=== PATIENT | female | born 2000 | race Caucasian/White ===

== ENCOUNTER 2021-06-03 18:20 | Inpatient (IN) | payer MEDICAID, OTHER ==
[2021-06-03 22:47] LABS: #Eosinphils 0.1 thou/uL (0.0-0.7); #Lymphocytes 2.6 thou/uL (1.20-3.40); #Monocytes 0.5 thou/uL (0.11-0.59); #Neutrophils 3.3 thou/uL (1.40-6.50); %Basophils 0.4 % (0.0-1.0); %Eosinophils 1.3 % (0.0-10.0); %Lymphocytes 40.2 % (21.0-51.0); %Monocytes 7.8 % (0.0-10.0); %Neutrophils 50.4 % (42.0-75.0); Hemoglobin 13.3 g/dL (12.0-16.0); Mean Corpuscular HGB CONC 32.9 g/dL (32.0-36.0); Mean Corpuscular Hemoglobin 28.3 pg (27.0-31.0); Mean Corpuscular Volume 85.8 fL (78.0-98.0); Mean Platelet Volume 6.3 fL (7.4-10.4); Platelet Count 228 thou/uL (130-400); RBC Distribution Width 11.2 % (11.5-14.5); Red Blood Cell (RBC) Count 4.72 mill/uL (4.20-5.40); White Blood Cell (WBC) Count 6.5 thou/uL (4.8-10.8)
[2021-06-03 23:03] LABS: ALT (SGPT) 9 U/L (8-55); AST (SGOT) 12 U/L (5-34); Albumin 3.6 g/dL (3.5-5.0); Alkaline Phosphatase 52 U/L (40-110); Anion Gap 13 mmol/L (10-20); BUN (Urea Nitrogen) 10 mg/dL (7.0-18.7); Bilirubin, Total 0.2 mg/dL (0.2-1.2); Calc. Creatinine Clearance 0 mL/min (70-130); Calcium 8.6 mg/dL (7.8-10.44); Carbon Dioxide 21 mmol/L (22-29); Chloride 106 mmol/L (98-107); Globulin 3.1 g/dL (2.4-3.5); Glucose 88 mg/dL (70-105); Protein, Total 6.7 g/dL (6.0-8.3); Sodium 136 mmol/L (136-145)
[2021-06-04] MEDS ORDERED: diphenhydrAMINE 50 MG/ML VIAL ONE (01:06)
[2021-06-04] MEDS ORDERED: Metoclopramide HCl 10 MG/2 ML VIAL ONE (01:06)
[2021-06-04 01:07] LABS: Color Of CSF Supernatant COLORLESS (Colorless); Unspun CSF Color COLORLESS (Colorless)
[2021-06-04 01:08] LABS: Tube # 3
[2021-06-04 01:10] LABS: CSF Source CSF; Clarity Clear (Clear); Clarity Hazy (Clear); Tube # 1; Tube # 4
[2021-06-04 01:25] LABS: CSF, Glucose 56 mg/dl (40-70); CSF, Protein 14 mg/dL (15-40)
[2021-06-04 02:46] LABS: SARS-CoV-2 NAA Rapid Test Not Detected (NotDetected)
[2021-06-04 03:09] VITALS: BMI 33.0
[2021-06-04] MEDS ORDERED: Ondansetron ODT 4 MG TAB PO PRN (05:42)
[2021-06-04] MEDS ORDERED: Ondansetron PF 4 MG/2 ML Vial IVP PRN (05:42)
[2021-06-04] MEDS ORDERED: Acetaminophen 650 MG Suppository PR PRN (05:42)
[2021-06-04] MEDS ORDERED: FLU VACC QS2021-22(6MOS UP)/PF 60 MCG/0.5 ML SYRINGE IM ONE (09:00)
[2021-06-04] MEDS: Acetaminophen 325 MG TAB PO PRN (16:13)
[2021-06-05 05:18] LABS: Hemoglobin 12.4 g/dL (12.0-16.0); Mean Corpuscular HGB CONC 33.8 g/dL (32.0-36.0); Mean Corpuscular Hemoglobin 28.8 pg (27.0-31.0); Mean Platelet Volume 6.2 fL (7.4-10.4); Platelet Count 190 thou/uL (130-400); RBC Distribution Width 11.3 % (11.5-14.5); White Blood Cell (WBC) Count 4.7 thou/uL (4.8-10.8)
[2021-06-05 05:34] LABS: Anion Gap 8 mmol/L (10-20); BUN (Urea Nitrogen) 10 mg/dL (7.0-18.7); Calc. Creatinine Clearance 157 mL/min (70-130); Calcium 9.1 mg/dL (7.8-10.44); Carbon Dioxide 24 mmol/L (22-29); Chloride 108 mmol/L (98-107); Glucose 87 mg/dL (70-105); Potassium 3.9 mmol/L (3.5-5.1); Sodium 136 mmol/L (136-145)
[2021-06-05 06:51] LABS: Band 1 % (5-11); Eosinophils 1 % (0-10); Lymphocytes 55 % (21-51); MDiff Complete? YES; Monocytes 5 % (0-10); Neutrophil 38 % (42-75); Platelet Morphology Comment Appears Adequate; RBC Morphology Normal
[2021-06-05] MEDS: Acetaminophen 325 MG TAB PO PRN ×2 (08:45→13:31)
[2021-06-05 15:57] VITALS: BP 115/72; TEMP 98.4
[2021-06-07 14:15] LABS: CSF IgG Index 0.5 (0.0-0.7); CSF IgG Synthesis Rate -5.1 mg/day (-9.9 TO +3.3); IgG/Alb CSF 0.15 (0.00-0.25)
== END 2021-06-05 17:50 | disposition home or self-care (01) | DRG 833 ==
LOC: ERS 18:20 → IMCU/EMU 06-04 01:27 → NEURO 06-04 18:04
PROVIDERS: ADMIT Student in an Organized Health Care Education/Training Program; ATTEND Internal Medicine
PROC: 009U3ZX Drainage of Spinal Canal, Percutaneous Approach, Diagnostic (ICD-10-PCS; principal; 2021-06-04)
DX: O26.891 Other specified pregnancy related conditions, first trimester (principal); Z20.822 Contact with and (suspected) exposure to COVID-19; O20.0 Threatened abortion; F41.9 Anxiety disorder, unspecified; F32.A Depression, unspecified; O99.341 Other mental disorders complicating pregnancy, first trimester; O99.211 Obesity complicating pregnancy, first trimester; E66.9 Obesity, unspecified; R53.1 Weakness; Z3A.01 Less than 8 weeks gestation of pregnancy; Z88.0 Allergy status to penicillin
CPT/HCPCS: 36415; 70450; 70551; 72148; 76856; 80048; 80053; 82040; 82042; 82784; 82945; 83916; 84157; 84702; 85025; 86900; 86901; 87070; 87205; 89051; 93976; J1200; J2765; U0002